=== PATIENT | male | born 1965 | race African-American/Black ===

== ENCOUNTER 2018-01-15 16:00 | Emergency (ER) | payer BC ==
[2018-01-15 16:14] VITALS: BP 136/90; PULSE 84; TEMP 98; BMI 37.8
[2018-01-15] MEDS ORDERED: KETOROLAC TROMETHAMINE 60 MG/2 ML VIAL IM ONE (16:41)
--- NOTE | 2018-01-15 16:41 | PDOC ---
History of Present Illness - General Chief Complaint: Back Pain Stated Complaint: BACK PAIN Time Seen by Provider: 01/15/18 16:11 History Source: Patient Exam Limitations: No Limitations - History of Present Illness Initial Comments: CHIEF COMPLAINT: 53 y/o afebrile, morbidly obese male with no significant PMH c /o right low back pain x 9 days. 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 9 days ago he sat up from a very low chair and felt a twinge in his right low back. He states he's been using heat since then with little relief. He states pain is worse with movement but denies radiation of pain. He denies trauma to back, fall, midline back tenderness, bowel/bladder incontinence, saddle anesthesia, numbness/tingling of LEs. Vital signs on arrival are within normal limits. REVIEW OF SYSTEMS: GENERAL/CONSTITUTIONAL: No fever/chills. No weakness. No weight change. GENITOURINARY: No dysuria, frequency, or change in urination. MUSCULOSKELETAL: +right low back pain. No joint or muscle swelling or pain. No neck pain. SKIN: No rash or easy bruising. NEUROLOGIC: No headache, vertigo, loss of consciousness, or loss of sensation. PHYSICAL EXAM: GENERAL: The patient is awake, alert, and fully oriented, in no acute distress. He is morbidly obese with normal gait. ABDOMEN: Soft, non-distended, non-tender even to deep palpation, no hepatomegaly or splenomegaly, no masses. BACK: No midline lumbar spine TTP or step offs. Minimal TTP of right lumbar paravertebral muscles. Full flexion and extension of lumbar spine. EXTREMITIES: Normal range of motion, no edema. NEUROLOGICAL: Normal speech, normal gait. CN II-XII grossly intact. No saddle anesthesia. sensory intact in b/l LEs. Equal strength b/l LEs. SKIN: Warm, dry, normal turgor, no rashes or lesions noted. Past History - Past Medical History Allergies/Adverse Reactions: Allergies Allergy/AdvReac Type Severity Reaction Status Date / Time No Known Allergies Allergy Verified 01/15/18 16:09 Home Medications: Ambulatory Orders No Home Medications 0 dose .ROUTE UTDICT 01/04/12 COPD: No DVT: No - Suicide/Smoking/Psychosocial Hx Smoking Status: No Smoking History: Never smoked Have you smoked in the past 12 months: No Number of Cigarettes Smoked Daily: 0 Information on smoking cessation initiated: No Hx Alcohol Use: No Drug/Substance Use Hx: No Substance Use Type: None *Physical Exam - Vital Signs Last Vital Signs Temp Pulse Resp BP Pulse Ox 98 F 84 16 136/90 100 01/15/18 16:07 01/15/18 16:07 01/15/18 16:07 01/15/18 16:07 01/15/18 16:07 Medical Decision Making - Medical Decision Making A/P: 53 y/o afebrile male with muscle strain of low back. Plan is as follows: 1. IM toradol Patient instructed to take 800mg of Advil or ibuprofen every 8 hours with food, apply heating pad to affected area and was shown stretches to perform 3-4 times daily. Suggested bending from the knees when lifting and f/u with PCP within 1 week. Pt instructed to return to the ER with any worsening or concerning symptoms. The patient verbalizes understanding of all instructions, has no further questions and is awaiting discharge. *DC/Admit/Observation/Transfer Diagnosis at time of Disposition: Low back strain Qualifiers: Encounter type: initial encounter Qualified Code(s): S39.012A - Strain of muscle, fascia and tendon of lower back, initial encounter - Discharge Dispostion Disposition: HOME Condition at time of disposition: Good - Referrals Referrals: Wei Johnson MD [Staff Physician] - Call tomorrow (Call Wednesday for follow up) - Patient Instructions Printed Discharge Instructions: DI for Low Back Pain Additional Instructions: Discharge Instructions: -You have a muscle strain in your low back -Apply heat to affected area -Massage and stretch affected area -Take 800mg of over the counter Advil or Ibuprofen every 8 hours with food -Lift with your knees -Follow up with Dr. Johnson next week -Return to the ER with any worsening or concerning symptoms - Post Discharge Activity
[2018-01-15] MEDS ORDERED: KETOROLAC TROMETHAMINE 60 MG/2 ML VIAL ONE (16:42)
== END 2018-01-15 16:51 | disposition home or self-care (01) ==
LOC: JERFT 16:00 → JER 16:00 → JERFT 16:51
PROC: 3E0233Z Introduction of Anti-inflammatory into Muscle, Percutaneous Approach (ICD-10-PCS; principal; 2018-01-15)
DX: S39.012A Strain of muscle, fascia and tendon of lower back, initial encounter (principal); X50.0XXA Overexertion from strenuous movement or load, initial encounter; Y93.89 Activity, other specified; Y92.89 Other specified places as the place of occurrence of the external cause; Y99.8 Other external cause status; E66.9 Obesity, unspecified; Z68.37 Body mass index [BMI] 37.0-37.9, adult
CPT/HCPCS: 99281-25